=== PATIENT | female | born 1990 | race African-American/Black ===

== ENCOUNTER 2023-10-18 17:51 | Emergency (ER) | payer OTHER ==
[2023-10-18 18:09] VITALS: BP 122/76; PULSE 79; RESP 18; TEMP 98.3; BMI 20.5
[2023-10-18 19:22] LABS: URINE APPEARANCE CLEAR; URINE BILIRUBIN NEGATIVE (NEGATIVE); URINE COLOR YELLOW; URINE GLUCOSE (UA) NEGATIVE (NEGATIVE); URINE KETONE NEGATIVE (NEGATIVE); URINE LEUK ESTERASE NEGATIVE (NEGATIVE); URINE NITRITE NEGATIVE (NEGATIVE); URINE PROTEIN NEGATIVE (NEGATIVE); URINE UROBILINOGEN 0.2 mg/dL (0.2-1.0)
[2023-10-18 20:14] LABS: HCG,QUALITATIVE URINE Negative
== END 2023-10-18 20:32 | disposition home or self-care (01) ==
LOC: JERFT 17:51
DX: N76.0 Acute vaginitis (principal); L29.2 Pruritus vulvae; N89.8 Other specified noninflammatory disorders of vagina
CPT/HCPCS: 36415; 81003; 84703; 86780; 87070; 87077; 87086; 87205; 87491; 87591; 87661; 99283-25